=== PATIENT | female | born 1990 | race Caucasian/White ===

== ENCOUNTER 2018-04-19 16:35 | Emergency (ER) | payer MEDICAID ==
[~2018-04-19] VITALS: Ht 154.9 cm; Wt 68.2 kg
[~2018-04-19 16:35] MED LIST: DITROPAN 5MG TAB5 MG PO; FLEXERIL 1010 MG/TAB PO; KEPPRA1000 MG PO; MACRODANTIN100 PO; NEURONTIN400 MG/CAP PO; NEURONTIN600 MG/TAB PO; NORCO 325 MG-51 TAB PO; PERCOCET 325 MG1 TAB PO; PHENERGAN 25 TA25 MG PO; PROZAC 10MG10 MG PO; XARELTO20 MG PO
[2018-04-19 16:45] VITALS: BP 136/83; TEMP 98.6
[2018-04-19] MEDS ORDERED: ATIVAN 1MG T1 MG/TAB PO (17:08)
[2018-04-19] MEDS ORDERED: ALBUTEROL0.83 MG/ML IH (17:08)
[2018-04-19] MEDS ORDERED: PROAIR HFA0.09 MG/AC IH (17:08)
[2018-04-19 18:36] VITALS: PULSE 103
== END 2018-04-19 18:36 | disposition home or self-care (01) ==
LOC: COL.ER 16:35
DX: J02.9 Acute pharyngitis, unspecified (principal); F17.210 Nicotine dependence, cigarettes, uncomplicated; Z98.890 Other specified postprocedural states; Z88.0 Allergy status to penicillin; F32.9 Major depressive disorder, single episode, unspecified; Z86.711 Personal history of pulmonary embolism; Z88.1 Allergy status to other antibiotic agents

== ENCOUNTER 2018-04-24 10:46 | Emergency (ER) | payer MEDICAID ==
[~2018-04-24] VITALS: Ht 154.9 cm; Wt 71.8 kg
[~2018-04-24 10:46] MED LIST changes: +ALBUTEROL0.83 MG/ML IH; +ATIVAN 1MG T1 MG/TAB PO; +PROAIR HFA0.09 MG/AC IH
[2018-04-24 10:54] VITALS: BP 127/85; TEMP 98.9
[2018-04-24] MEDS ORDERED: CLEOCIN HCL300 MG PO (12:06)
[2018-04-24 12:34] VITALS: PULSE 101
== END 2018-04-24 12:43 | disposition home or self-care (01) ==
LOC: COL.ER 10:46
DX: J02.0 Streptococcal pharyngitis (principal); F32.9 Major depressive disorder, single episode, unspecified; F17.210 Nicotine dependence, cigarettes, uncomplicated; Z88.0 Allergy status to penicillin; Z88.1 Allergy status to other antibiotic agents

== ENCOUNTER → 2018-06-30 | Outpatient (CLI) | payer MEDICAID ==
[~2018-06-30] MED LIST changes: +CLEOCIN HCL300 MG PO
== END ==
LOC: COL.RAD 09:54
DX: N92.6 Irregular menstruation, unspecified (principal); Z90.89 Acquired absence of other organs
CPT/HCPCS: Q9967

== ENCOUNTER 2018-08-05 13:06 | Emergency (ER) | payer MEDICAID ==
[~2018-08-05] VITALS: Ht 154.9 cm; Wt 72.7 kg
[2018-08-05 13:08] VITALS: TEMP 99.3
[2018-08-05 13:44] LABS: BASO # 0.1 (0.0-0.2); BASO % 1.3 % (0.0-2.0); EOS # 0.5 (0.0-0.7); EOS % 6.3 % (0-4.0); GRAN # 3.8 (1.4-6.5); GRAN % 49.8 % (42.2-75.2); HEMOGLOBIN 11.1 g/dl (12.5-16.0); LYMPH # 2.7 (1.2-3.4); LYMPH % 35.5 % (20.0-51.0); MEAN CELL VOLUME 83 fl (80.0-100.0); MEAN CORPUSCULAR HEMOGLOBIN 27 pg (27.0-31.0); MEAN CORPUSCULAR HGB CONC 33 g/dl (33.0-37.0); MEAN PLATELET VOLUME 8.5 fl (7.4-10.4); MONO # 0.5 (0.1-0.6); MONO % 5.9 % (1.7-9.3); PLATELET COUNT 484 K/mm3 (130-400); RED BLOOD COUNT 4.12 M/mm3 (4.10-5.30); REDCELL DISTRIBUTION WIDTH-CV 14.4 % (11.5-14.5)
[2018-08-05 13:45] LABS: HEMATOCRIT 34.2 % (37.0-47.0)
[2018-08-05 13:49] LABS: INR 1.5 (0.8-3.0); PROTHROMBIN TIME 17.3 SECONDS (9.7-12.8)
[2018-08-05 13:57] LABS: ALBUMIN 4.1 gm/dL (3.5-5.0); BILIRUBIN,TOTAL 0.3 mg/dL (0.0-1.0); CALCIUM 9.5 mg/dL (8.4-10.2); CREATININE, serum 0.59 (0.52-1.25); POTASSIUM 4.2 mmol/L (3.4-5.0); TOTAL PROTEIN 7.9 gm/dL (6.4-8.2)
[2018-08-05 13:57] LABS: COLLECTION METHOD CLEAN CATCH
[2018-08-05 14:14] LABS: PH 6 (5-8); URINE APPEARANCE Cloudy; URINE BACTERIA None Seen /hpf; URINE BILIRUBIN Negative (NEGATIVE); URINE BLOOD 3+ (NEGATIVE); URINE COLOR Yellow; URINE GLUCOSE Negative (NEGATIVE); URINE KETONE Negative (NEGATIVE); URINE LEUKOCYTE ESTERASE 3+ (NEGATIVE); URINE NITRATE Negative (NEGATIVE); URINE PROTEIN(semi-quant) Negative (NEGATIVE); URINE RBC 20-50 /hpf; URINE UROBILINOGEN Negative (NEGATIVE)
[2018-08-05 14:26] VITALS: BP 100/64; PULSE 93
[2018-08-05] MEDS ORDERED: XARELTO20 MG PO (14:27)
== END 2018-08-05 15:17 | disposition home or self-care (01) ==
LOC: COL.ER 13:06
PROVIDERS: Family Medicine
DX: N99.820 Postprocedural hemorrhage of a genitourinary system organ or structure following a genitourinary system procedure (principal); Z90.710 Acquired absence of both cervix and uterus

== ENCOUNTER 2018-09-07 23:22 | Emergency (ER) | payer MEDICAID ==
[~2018-09-07] VITALS: Ht 154.9 cm; Wt 72.7 kg
[2018-09-07 23:23] VITALS: BP 108/81
[2018-09-07] MEDS ORDERED: EPIPEN 2-PAK1 MG/ML IM (23:30)
[2018-09-08] MEDS ORDERED: EPIPEN 2-PAK1 MG/ML IM (00:44)
[2018-09-08 00:45] VITALS: PULSE 108
== END 2018-09-08 00:50 | disposition home or self-care (01) ==
LOC: COL.ER 23:22
DX: T78.1XXA Other adverse food reactions, not elsewhere classified, initial encounter (principal); F17.210 Nicotine dependence, cigarettes, uncomplicated
CPT/HCPCS: J1200; J2930; J3010; J7030

== ENCOUNTER 2018-10-11 21:09 | Emergency (ER) | payer MEDICAID ==
[~2018-10-11] VITALS: Ht 154.9 cm; Wt 69.1 kg
[~2018-10-11 21:09] MED LIST changes: +EPIPEN 2-PAK1 MG/ML IM
[2018-10-11 21:28] VITALS: BP 121/81; TEMP 97.1
[2018-10-12 01:17] VITALS: PULSE 86
== END 2018-10-12 01:19 | disposition home or self-care (01) ==
LOC: COL.ER 21:09
DX: S63.501A Unspecified sprain of right wrist, initial encounter (principal); T22.111A Burn of first degree of right forearm, initial encounter; F17.290 Nicotine dependence, other tobacco product, uncomplicated; F32.9 Major depressive disorder, single episode, unspecified; F41.9 Anxiety disorder, unspecified; Z88.0 Allergy status to penicillin; Z88.1 Allergy status to other antibiotic agents; W01.0XXA Fall on same level from slipping, tripping and stumbling without subsequent striking against object, initial encounter; X10.2XXA Contact with fats and cooking oils, initial encounter; Y92.009 Unspecified place in unspecified non-institutional (private) residence as the place of occurrence of the external cause

== ENCOUNTER → 2018-10-13 | Outpatient (CLI) | payer MEDICAID | LOC: COL.RAD 11:38 | DX: T23.001A Burn of unspecified degree of right hand, unspecified site, initial encounter (principal) ==

== ENCOUNTER 2018-11-12 12:08 | Emergency (ER) | payer MEDICAID ==
[~2018-11-12] VITALS: Ht 154.9 cm; Wt 72.7 kg
[2018-11-12 12:21] VITALS: BP 115/78
[2018-11-12] MEDS ORDERED: DOXYCYCLINE 10100 MG PO (13:30)
[2018-11-12 13:50] VITALS: PULSE 96; TEMP 98.1
== END 2018-11-12 13:50 | disposition home or self-care (01) ==
LOC: COL.ER 12:08
DX: L03.115 Cellulitis of right lower limb (principal); F32.9 Major depressive disorder, single episode, unspecified; F17.210 Nicotine dependence, cigarettes, uncomplicated; Z90.710 Acquired absence of both cervix and uterus; Z98.890 Other specified postprocedural states; Z86.711 Personal history of pulmonary embolism

== ENCOUNTER → 2019-02-07 | Outpatient (CLI) | payer MEDICAID ==
[~2019-02-07] MED LIST changes: +DOXYCYCLINE 10100 MG PO
[2019-02-07 14:25] LABS: MAGNESIUM 2.1 mg/dL (1.6-2.3)
[2019-02-07 23:44] LABS: FOLATE (FOLIC ACID) 10.3 ng/mL (7.0-31.4)
[2019-02-08 12:44] LABS: LYME DISEASE ANTIBODIES Negative (Negative)
[2019-02-08 23:59] LABS: RPR (VDRL) XXX
[2019-02-09 15:52] LABS: ANA SCREEN with REFLEX Indeterminate (Negative)
== END ==
LOC: COL.LAB 12:51
PROVIDERS: Psychiatry & Neurology Neurology
DX: G62.9 Polyneuropathy, unspecified (principal); E53.1 Pyridoxine deficiency; E61.2 Magnesium deficiency

== ENCOUNTER 2019-02-17 13:43 | Inpatient (IN) | payer MEDICAID ==
[~2019-02-17] VITALS: Ht 154.9 cm; Wt 78.5 kg
[2019-02-17 14:42] LABS: BASO # 0.1 (0.0-0.2); BASO % 0.6 % (0.0-2.0); EOS # 0.1 (0.0-0.7); EOS % 1.3 % (0-4.0); GRAN % 73.7 % (42.2-75.2); HEMOGLOBIN 13.8 g/dl (12.5-16.0); LYMPH # 1.6 (1.2-3.4); LYMPH % 16.8 % (20.0-51.0); MEAN CELL VOLUME 90 fl (80.0-100.0); MEAN CORPUSCULAR HEMOGLOBIN 30 pg (27.0-31.0); MEAN CORPUSCULAR HGB CONC 33 g/dl (33.0-37.0); MEAN PLATELET VOLUME 8.9 fl (7.4-10.4); MONO # 0.7 (0.1-0.6); MONO % 7.4 % (1.7-9.3); PLATELET COUNT 381 K/mm3 (130-400); RED BLOOD COUNT 4.67 M/mm3 (4.10-5.30); REDCELL DISTRIBUTION WIDTH-CV 12.5 % (11.5-14.5)
[2019-02-17 14:55] LABS: ALBUMIN 4.8 gm/dL (3.5-5.0); BILIRUBIN,TOTAL 0.4 mg/dL (0.0-1.0); CREATININE, serum 0.72 (0.52-1.25); PHOSPHOROUS 4.1 mg/dL (2.5-4.5); POTASSIUM 3.7 mmol/L (3.4-5.0); TOTAL PROTEIN 8.8 gm/dL (6.4-8.2)
[2019-02-17 15:13] LABS: C-REACTIVE PROTEIN 0.6 mg/dL (0.0-0.9)
[2019-02-17 15:26] LABS: COLLECTION METHOD CLEAN CATCH
[2019-02-17 15:33] LABS: MUCOUS Present /lpf; PH 5 (5-8); SQUAMOUS EPITHELIAL 0-2 /hpf; URINE APPEARANCE Clear; URINE BACTERIA None Seen /hpf; URINE BILIRUBIN Negative (NEGATIVE); URINE BLOOD 2+ (NEGATIVE); URINE COLOR Yellow; URINE GLUCOSE Negative (NEGATIVE); URINE KETONE Negative (NEGATIVE); URINE LEUKOCYTE ESTERASE Negative (NEGATIVE); URINE NITRATE Negative (NEGATIVE); URINE PROTEIN(semi-quant) Negative (NEGATIVE); URINE RBC 20-50 /hpf; URINE UROBILINOGEN Negative (NEGATIVE); URINE WBC 0-2 /hpf
[2019-02-17 19:00] VITALS: BP 109/68; PULSE 128; TEMP 97.7
[2019-02-17 19:04] VITALS: BP 109/68; PULSE 128; TEMP 97.7
[2019-02-17] MEDS ORDERED: VTAMINC250TA PO (19:23)
[2019-02-17] MEDS ORDERED: IRON TABLETS325 MG PO (19:25)
--- NOTE | 2019-02-17 19:43 | NUR ---
Pt. sitting up in bed at this time. Pt. is A&OX3, assessment complete. IV to lt. AC patent, Fluids infusing per orders. Pt. reports pain at a 7 on pain scale to bilateral thighs. Will give pain meds per orders. Pt. denies further needs, call light within reach.
--- NOTE | 2019-02-17 21:46 | NUR ---
Report received from KELLIE Hernandez. Patient up to commode with assistance from staff. Upon reassessment, patient in bed with eyes closed. Will continue to monitor patient.
[2019-02-17 23:37] VITALS: BP 103/56; PULSE 125; TEMP 98.4
[2019-02-18 03:32] VITALS: BP 117/72; PULSE 115; TEMP 98.2
--- NOTE | 2019-02-18 03:37 | NUR ---
Patient called this nurse and was noted to be sitting on the floor next to her bed with her feet out in front of her. Denies hitting her head or any new pain r/t fall. Patient stated she was trying to get to the bathroom and her legs gave out and she slid down the bed onto the floor. Patient assisted into the bathroom with 2 assist. Fall risk wristband, signage, gown, and socks applied to patient. Education provided on the importance of calling for help. Bed alarm on. No injury noted. Will continue to monitor patient.
[2019-02-18 07:33] VITALS: BP 103/43; PULSE 119; TEMP 98.3
[2019-02-18] MEDS ORDERED: MACROBID 1100 MG/CAP PO (07:40)
[2019-02-18 07:48] LABS: BASO # 0.1 (0.0-0.2); EOS # 0.3 (0.0-0.7); EOS % 4.1 % (0-4.0); GRAN # 3.2 (1.4-6.5); GRAN % 42.9 % (42.2-75.2); LYMPH # 3.3 (1.2-3.4); LYMPH % 45.1 % (20.0-51.0); MEAN CELL VOLUME 93 fl (80.0-100.0); MEAN CORPUSCULAR HGB CONC 33 g/dl (33.0-37.0); MEAN PLATELET VOLUME 9.5 fl (7.4-10.4); MONO # 0.5 (0.1-0.6); MONO % 6.8 % (1.7-9.3); PLATELET COUNT 283 K/mm3 (130-400); RED BLOOD COUNT 3.76 M/mm3 (4.10-5.30); REDCELL DISTRIBUTION WIDTH-CV 12.8 % (11.5-14.5)
[2019-02-18 07:49] LABS: ALBUMIN 3.4 gm/dL (3.5-5.0); BILIRUBIN,TOTAL 0.2 mg/dL (0.0-1.0); CALCIUM 8.1 mg/dL (8.4-10.2); CREATININE, serum 0.67 (0.52-1.25); HEMATOCRIT 34.8 % (37.0-47.0); HEMOGLOBIN 11.3 g/dl (12.5-16.0); MAGNESIUM 1.9 mg/dL (1.6-2.3); MEAN CORPUSCULAR HEMOGLOBIN 30 pg (27.0-31.0); POTASSIUM 3.9 mmol/L (3.4-5.0); TOTAL PROTEIN 6.2 gm/dL (6.4-8.2)
--- NOTE | 2019-02-18 07:53 | NUR ---
Patient resting in bed. victor manuel reviewed & imporance of calling for help discussed with the weakness reported in legs. Ivf per sofie to [place]. We extensivly reviewed med rec & I will review with .
--- NOTE | 2019-02-18 10:45 | NUR ---
Patient lives with her friend/partner (Federico Okeefe #[phone]) in [place], [place] and plans to return home upon recovery. Patient is disabled and uses a walker for mobility assistance as needed. Patient's primary care physician is Dixie Hayes and also receives medical care from Kisha Pan. Patient's pharmacy is [facility] and she does not have advance directives of healthcare completed at this time. No further needs and child protective services social worker will follow-up as needed.
[2019-02-18 11:34] VITALS: BP 108/64; PULSE 122; TEMP 98.2
[2019-02-18 17:28] VITALS: BP 119/67; PULSE 119; TEMP 97.9
--- NOTE | 2019-02-18 19:46 | NUR ---
Patient has had a busy day. ortho, neuro, & nephrology consults completed. Mri completed. Medications per orders to manage pain & anxiety. She has had visitors throughout the day & been on the phone alot. Tolerating diet. 2 assist to bedside commode today for bathroom assistance, still weak on her legs. New Iv to Left hand, ivf per orders.
[2019-02-18 20:06] VITALS: BP 105/85; PULSE 121; TEMP 98.4
[2019-02-19 01:02] VITALS: BP 94/64; PULSE 123; TEMP 98.7
--- NOTE | 2019-02-19 07:00 | NUR ---
Report rcvd from KELLIE Taylor. Pt appears to be on some extra medications, seems "high". Pt had 2 instances of bowel incontinence during sleep. During the night, Wendy HOPKINS and myself found an extra bottle of medications that had not previously been noted. Bottle was full of a mixture of medications including but not limited to Gabapentin, Flexril and Percocet. Pt denied knowledge of having them on her person, however, she kept her purse on her bed at all times and did not want the RN to move it to the closet for safe keeping. RN also found a vape box along with multiple Nicotine infused "juices" for the vape box. Informed pt that this is a No Smoking campus and that we would need to confinscate that as well. Pt was reluctant, and RN and Pt agreed to send it home with the Boyfriend who was here. Now as a precaution, family members visiting cannot take anything into the room and must let the staff know before entering. Bed alarm remains on due to pts weakness in her legs and numbness in her feet. Pt is very emotional about her current health status. Psych consult has been mentioned by the pt as she has a referral to [facility], but has not been contacted regarding an appointment. Pt states she feels as though her medications are not working for depression, mood disorder as well as severe anxiety. Report given to KELLIE Gold. All of this has been discussed at bedside report and pt agrees to bring up all her concerns to the doctor during rounds today.
[2019-02-19 07:09] LABS: BASO % 0.6 % (0.0-2.0); EOS # 0.4 (0.0-0.7); EOS % 6.5 % (0-4.0); GRAN # 3.8 (1.4-6.5); GRAN % 60.9 % (42.2-75.2); HEMOGLOBIN 10.3 g/dl (12.5-16.0); LYMPH # 1.6 (1.2-3.4); LYMPH % 25.3 % (20.0-51.0); MEAN CELL VOLUME 95 fl (80.0-100.0); MEAN CORPUSCULAR HEMOGLOBIN 29 pg (27.0-31.0); MEAN CORPUSCULAR HGB CONC 31 g/dl (33.0-37.0); MEAN PLATELET VOLUME 9.5 fl (7.4-10.4); MONO # 0.4 (0.1-0.6); MONO % 6.2 % (1.7-9.3); PLATELET COUNT 226 K/mm3 (130-400); REDCELL DISTRIBUTION WIDTH-CV 13.1 % (11.5-14.5)
[2019-02-19 07:10] LABS: HEMATOCRIT 33.2 % (37.0-47.0)
[2019-02-19 07:18] VITALS: BP 105/66; PULSE 104; TEMP 98.4
[2019-02-19 07:33] LABS: ALBUMIN 3.2 gm/dL (3.5-5.0); BILIRUBIN,TOTAL 0.2 mg/dL (0.0-1.0); CALCIUM 8.3 mg/dL (8.4-10.2); CREATININE, serum 0.67 (0.52-1.25); POTASSIUM 4.1 mmol/L (3.4-5.0); TOTAL PROTEIN 6.2 gm/dL (6.4-8.2)
--- NOTE | 2019-02-19 07:34 | NUR ---
Report from Cindy HOPKINS.
[2019-02-19 10:04] LABS: TRICYCLIC ANTIDEPRESS URINE POSITIVE
[2019-02-19 10:04] LABS: ACETAMINOPHEN 14 ug/mL (10-30)
[2019-02-19 10:05] LABS: SALICYLATE < 1.0 mg/dL
[2019-02-19 11:21] VITALS: BP 105/67; PULSE 110; TEMP 98.4
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
--- NOTE | 2019-02-19 15:18 | NUR ---
PILLO PHARMACIST RETURNED MEDS FROM PHARMACY. BOYFRIEND TOOK MEDS HOME.
[2019-02-19 15:19] VITALS: BP 120/59; PULSE 110; TEMP 99.1
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
--- NOTE | 2019-02-19 19:39 | NUR ---
Pt pulled IV out, walked in room with blood on floor and patient wiping up blood on hand.
[2019-02-19 20:00] VITALS: BP 117/59; PULSE 108; TEMP 98.4
--- NOTE | 2019-02-19 21:52 | NUR ---
Pt doing ok. Alert and oriented with VSS. Got up to wheelchair to bathroom a few times. Pt did pull IV out earlier so fluids not running. Patient refused to have house and Dixie start an IV previously.
[2019-02-19 23:23] VITALS: BP 119/69; PULSE 113; TEMP 98.5
--- NOTE | 2019-02-20 01:47 | NUR ---
Patient resting in bed. No issues with patient as of now. Call light within reach, will continue to monitor
[2019-02-20 03:31] VITALS: BP 106/66; PULSE 106; TEMP 98.3
[2019-02-20 06:16] LABS: BASO # 0.1 (0.0-0.2); BASO % 0.9 % (0.0-2.0); EOS # 0.8 (0.0-0.7); EOS % 12.9 % (0-4.0); GRAN # 2.5 (1.4-6.5); GRAN % 38.5 % (42.2-75.2); HEMOGLOBIN 11.2 g/dl (12.5-16.0); LYMPH # 2.5 (1.2-3.4); LYMPH % 39.5 % (20.0-51.0); MEAN CELL VOLUME 93 fl (80.0-100.0); MEAN CORPUSCULAR HEMOGLOBIN 29 pg (27.0-31.0); MEAN CORPUSCULAR HGB CONC 32 g/dl (33.0-37.0); MEAN PLATELET VOLUME 9.5 fl (7.4-10.4); MONO # 0.5 (0.1-0.6); MONO % 7.6 % (1.7-9.3); PLATELET COUNT 235 K/mm3 (130-400); RED BLOOD COUNT 3.83 M/mm3 (4.10-5.30); REDCELL DISTRIBUTION WIDTH-CV 12.9 % (11.5-14.5)
[2019-02-20 06:21] LABS: HEMATOCRIT 35.5 % (37.0-47.0)
[2019-02-20 06:32] LABS: ALBUMIN 3.6 gm/dL (3.5-5.0); BILIRUBIN,TOTAL 0.2 mg/dL (0.0-1.0); CALCIUM 8.9 mg/dL (8.4-10.2); CREATININE, serum 0.58 (0.52-1.25); POTASSIUM 4.3 mmol/L (3.4-5.0); TOTAL PROTEIN 6.6 gm/dL (6.4-8.2)
--- NOTE | 2019-02-20 06:45 | NUR ---
awake resting in bed, bedside shift report received from KELLIE Lakhani, assisted up to bathroom, is able to move herself from bed to WC and then WC to commode with standby assist
[2019-02-20 07:50] VITALS: BP 104/61; PULSE 112; TEMP 98.1
--- NOTE | 2019-02-20 07:50 | NUR ---
resting in bed, full assessment completed, see interventions for further info
--- NOTE | 2019-02-20 09:06 | NUR ---
sitting up in bed eating breakfast, denies needs
--- NOTE | 2019-02-20 09:50 | NUR ---
Dr Austin and care team in to see erin
--- NOTE | 2019-02-20 10:05 | NUR ---
Initial visit; Patient thanked Derrickman Helper for stopping and for keeping her in Derrickman Helper's prayers.
--- NOTE | 2019-02-20 10:30 | NUR ---
is tearful and up set after Dr and care team in and requesting lorazepam, provided 1mg as ordered, KERVIN Vale in and spoke with her about a lumbar puncture and she is in agreement with this after Akanksha explained the need, c/o pain and explained it is tooearly for a pain pill and was medicated with tlexeril 10mg, assisted up to WC and into bathroom, then back to WC and to radiology
--- NOTE | 2019-02-20 11:15 | NUR ---
returned from radiology per stretcher and assisted over and into bed, informed her she would need to lie flat for an hour and verbalizes understanding, assisted onto bed qiu
--- NOTE | 2019-02-20 11:45 | NUR ---
had small amount liquid stool and care provided, denies needs
[2019-02-20 12:02] LABS: CSF APPEARANCE HAZY; CSF COLOR COLORLESS; CSF RBC 1825 /mm3 (0-0)
[2019-02-20 12:12] LABS: CSF MONONUCLEAR 55 % (70-100); CSF POLYMORPHONUCLEAR 45 % (0-6)
[2019-02-20 12:35] LABS: TOTAL PROTEIN,CSF 21 mg/dL (15-45)
[2019-02-20] MEDS ORDERED: ZANAFLEX 4MG TAB4 MG PO (12:56)
--- NOTE | 2019-02-20 13:00 | NUR ---
c/o pain and medicated with roxicodone 5mg
--- NOTE | 2019-02-20 13:00 | NUR ---
cheerful and lying in bed, c/o pain and medicated with roxicodone 5mg po for c/os pain 11/25
[2019-02-20 13:12] VITALS: BP 99/61; PULSE 128; TEMP 98.8
--- NOTE | 2019-02-20 15:00 | NUR ---
awake in bed and looking in bed, asking about when her last pain pill was and informed it was at 1300, verbalizes understanding
[2019-02-20 16:03] VITALS: BP 106/81; PULSE 116; TEMP 98.6
--- NOTE | 2019-02-20 16:19 | NUR ---
requesting lorazepam, informed her it was too early and she was acting confused about that, told her it was only every 8 hours, then she asked about having it before the Dr made rounds, told her they would not be making rounds again tonana cristina and was then excited and was ok with not having it
--- NOTE | 2019-02-20 16:45 | NUR ---
family in to visit, cheerful and coopertive
--- NOTE | 2019-02-20 18:44 | NUR ---
bedside shift report given to KELLIE Mao
[2019-02-20 20:40] VITALS: BP 107/77; PULSE 116; TEMP 98.5
[2019-02-20 23:08] VITALS: BP 115/65; PULSE 117; TEMP 98.6
[2019-02-21 04:29] VITALS: BP 96/78; PULSE 99; TEMP 98.5
--- NOTE | 2019-02-21 07:00 | NUR ---
Report received from KELLIE Mao. PT in bed resting, lab in room drawing labs. Denies needs, will continue to montsim.
[2019-02-21 07:33] LABS: BASO % 0.6 % (0.0-2.0); EOS # 0.8 (0.0-0.7); EOS % 11.4 % (0-4.0); GRAN # 3.1 (1.4-6.5); GRAN % 43.4 % (42.2-75.2); LYMPH # 2.6 (1.2-3.4); MEAN CELL VOLUME 91 fl (80.0-100.0); MEAN CORPUSCULAR HEMOGLOBIN 29 pg (27.0-31.0); MEAN CORPUSCULAR HGB CONC 32 g/dl (33.0-37.0); MEAN PLATELET VOLUME 9.1 fl (7.4-10.4); MONO # 0.6 (0.1-0.6); MONO % 7.9 % (1.7-9.3); PLATELET COUNT 248 K/mm3 (130-400); RED BLOOD COUNT 3.74 M/mm3 (4.10-5.30); REDCELL DISTRIBUTION WIDTH-CV 13.1 % (11.5-14.5)
[2019-02-21 07:42] LABS: HEMATOCRIT 34.2 % (37.0-47.0)
[2019-02-21 07:59] LABS: CALCIUM 9.1 mg/dL (8.4-10.2); CREATININE, serum 0.58 (0.52-1.25); POTASSIUM 4.2 mmol/L (3.4-5.0)
[2019-02-21 08:21] VITALS: BP 107/71; PULSE 113; TEMP 98.9
--- NOTE | 2019-02-21 08:42 | NUR ---
Assessment charted. Pt c/o pain at 10/10 to BLE from knee to hip. From knee to toes it is numb. Pt states she is able to feel some sensations but "feels like when you are at the dentist and you get novacaine". PRN ativan given in anticipation of rounding. Wheelchair at bedside. Pt resting in bed. Will continue to [facility].
[2019-02-21 08:56] LABS: ALBUMIN 3.5 gm/dL (3.5-5.0); BILIRUBIN,TOTAL 0.2 mg/dL (0.0-1.0); TOTAL PROTEIN 6.5 gm/dL (6.4-8.2)
[2019-02-21 11:25] VITALS: BP 113/70; PULSE 119; TEMP 98.7
[2019-02-21] MEDS ORDERED: LAMICTAL 25MG T25 MG PO (13:25)
--- NOTE | 2019-02-21 15:50 | NUR ---
Discharge teaching completed at this time. Pt received dishcarge packet, reviewed packet, answered all questions, reviewed f/u appointments. Pt left wtih all belongings, escorted out via w/c, boyfriend assisted to truck, boyfriend to drive to get DME at [facility] Criteria met.
--- NOTE | 2019-02-21 16:40 | NUR ---
DCF Worker met with the patient in her room. ISABEL then followed up with the patient to review discharge plan and to discuss PT's recommendation of a wheelchair and outpatient PT. The patient was in agreeance to both and preferred [facility] for the outpatient PT. ISABEL contacted Vijaya at [facility] and secured the patient an appointment for outpatient PT on 03/02 at 0930. ISABEL informed the community nurse of the appointment and the Akanksha WEAVER, for a script. ISABEL then presented and explained the Patient Choice Form for DME. The patient chose [facility]. ISABEL contacted and faxed the patient's wheelchair order to Chanda at [facility]. The patient and her boyfriend plan to go pickle solution maker the wheelchair. ISABEL informed Chanda at [facility] of this. The patient is to discharge back home today, 02/21. No additional needs at this time.
[2019-02-22 13:36] LABS: HSV 2 DNA PCR QUAL Not Detected (())
[2019-02-22 13:52] LABS: ALBUMUN SERUM 3400 mg/dL (()); IGG,SERUM 942 mg/dL (()); IGG/ALBUMIN SERUM 0.28 (<=0.40)
[2019-02-22 14:27] LABS: ALBUMIN CSF 8.3 mg/dL (<=27.0); CSF IGG/ALBUMIN 0.11 (<=0.21); CSF,IGG 0.9 mg/dL (<=8.1); CSF-IGG INDEX 0.39 (<=0.85)
== END 2019-02-21 15:50 | disposition home or self-care (01) | DRG 558 ==
LOC: COL.ER 13:43 → MEDICAL 17:13 → EDBEDREQ 17:35 → COL.ER 18:10 → MEDICAL 02-21 15:50
PROVIDERS: Emergency Medicine; Physician Assistant; Psychiatry & Neurology Neurology; ADMIT Internal Medicine
PROC: 009U3ZX Drainage of Spinal Canal, Percutaneous Approach, Diagnostic (ICD-10-PCS; principal; 2019-02-20)
DX: M62.82 Rhabdomyolysis (principal); C56.9 Malignant neoplasm of unspecified ovary; D68.51 Activated protein C resistance; F33.9 Major depressive disorder, recurrent, unspecified; F17.290 Nicotine dependence, other tobacco product, uncomplicated; G40.909 Epilepsy, unspecified, not intractable, without status epilepticus; R53.81 Other malaise; M19.042 Primary osteoarthritis, left hand; M19.041 Primary osteoarthritis, right hand; Z79.891 Long term (current) use of opiate analgesic; Z90.710 Acquired absence of both cervix and uterus; Z87.440 Personal history of urinary (tract) infections; Z88.0 Allergy status to penicillin; Z87.891 Personal history of nicotine dependence
CPT/HCPCS: 99222-AI; 99231-AI; 99232-AI; 99233-AI; J0780; J1170; J1644; J1885; J2405; J7030; J7120

== ENCOUNTER 2019-05-01 08:15 | Outpatient (RCR) | payer MEDICAID ==
[~2019-05-01 08:15] MED LIST changes: +IRON TABLETS325 MG PO; +LAMICTAL 25MG T25 MG PO; +MACROBID 1100 MG/CAP PO; +VTAMINC250TA PO; +ZANAFLEX 4MG TAB4 MG PO
== END 2019-05-01 17:06 | disposition home or self-care (01) ==
LOC: WSC 08:15
DX: M62.82 Rhabdomyolysis (principal)

== ENCOUNTER → 2019-10-02 | Outpatient (CLI) | payer MEDICAID | LOC: COL.RAD 12:56 | DX: M25.571 Pain in right ankle and joints of right foot (principal); M25.561 Pain in right knee ==

== ENCOUNTER → 2019-12-28 | Emergency (ER) | payer MEDICAID ==
[~2019-12-28] VITALS: Ht 154.9 cm; Wt 80.9 kg
[~2019-12-28] MED LIST changes: +SEPTRA DS 8001 TAB PO
[2019-12-28 19:19] VITALS: TEMP 97.7
[2019-12-28 20:27] LABS: COLLECTION METHOD CLEAN CATCH
[2019-12-28 20:34] LABS: PH 5 (5-8); SQUAMOUS EPITHELIAL 0-2 /hpf; URINE APPEARANCE Clear; URINE BACTERIA Rare /hpf; URINE BILIRUBIN Negative (NEGATIVE); URINE BLOOD 2+ (NEGATIVE); URINE COLOR Yellow; URINE GLUCOSE Negative (NEGATIVE); URINE KETONE Negative (NEGATIVE); URINE LEUKOCYTE ESTERASE Trace (NEGATIVE); URINE NITRATE Negative (NEGATIVE); URINE PROTEIN(semi-quant) Negative (NEGATIVE); URINE RBC >50 /hpf; URINE UROBILINOGEN Negative (NEGATIVE)
[2019-12-28 21:29] VITALS: BP 144/80; PULSE 80
== END ==
LOC: COL.ER 19:01
PROVIDERS: Physician Assistant
DX: B34.9 Viral infection, unspecified (principal); N30.91 Cystitis, unspecified with hematuria; J45.909 Unspecified asthma, uncomplicated; F17.290 Nicotine dependence, other tobacco product, uncomplicated; Z20.828 Contact with and (suspected) exposure to other viral communicable diseases; Z79.01 Long term (current) use of anticoagulants; Z86.718 Personal history of other venous thrombosis and embolism; Z86.711 Personal history of pulmonary embolism; Z90.49 Acquired absence of other specified parts of digestive tract; Z90.710 Acquired absence of both cervix and uterus; Z85.43 Personal history of malignant neoplasm of ovary; Z88.0 Allergy status to penicillin; Z88.1 Allergy status to other antibiotic agents

== ENCOUNTER 2020-03-03 05:16 | Day surgery (SDC) | payer MEDICAID ==
[~2020-03-03] VITALS: Ht 154.9 cm; Wt 80.4 kg
[2020-03-03] MEDS ORDERED: ZANAFLEX2 MG PO (06:05)
[2020-03-03] MEDS ORDERED: IMITREX50 MG PO (06:05)
[2020-03-03] MEDS ORDERED: PRENATAL TABLET PO (06:06)
[2020-03-03] MEDS ORDERED: MAG-OX 400400 MG/TAB PO (06:06)
[2020-03-03] MEDS ORDERED: B COMPLEX & B121 TAB PO (06:06)
[2020-03-03] MEDS ORDERED: MACRODANTIN100 PO (06:06)
[2020-03-03 06:09] VITALS: BP 109/66; PULSE 105; TEMP 97.6
[2020-03-03 07:43] VITALS: BP 108/64; PULSE 101; TEMP 97.3
--- NOTE | 2020-03-03 07:43 | NUR ---
Patient arrives back to [facility] drowsy, patient monitor applied, vitals stable. Patient reports slight discomfort in right arm. Right arm has dressing in place with OUMOU wrap on top, no drainage noted. Patient given crackers and sprite. Patient resting comfortably on cart.
[2020-03-03 08:00] VITALS: BP 122/98; PULSE 91
--- NOTE | 2020-03-03 08:00 | NUR ---
Patient more awake and eating/drinking well, denies nausea. Patient's friend brought to bedside.
[2020-03-03 08:30] VITALS: BP 116/57; PULSE 75
--- NOTE | 2020-03-03 08:35 | NUR ---
Patient reports she is ready to go home, but would like to get one pain tablet medication on board prior to dicharge. Dressing clean/dry/intact.
--- NOTE | 2020-03-03 08:45 | NUR ---
Dismissal instructions gone over with patient. She voices understanding and all questions answered.
--- NOTE | 2020-03-03 08:55 | NUR ---
Patient discharged to private vehicle at patient enterance via wheelchair without any complications. Patient leaves thanking staff for services.
== END 2020-03-03 08:55 | disposition home or self-care (01) ==
LOC: SDCO 05:16
DX: G56.01 Carpal tunnel syndrome, right upper limb (principal); J45.909 Unspecified asthma, uncomplicated; G89.29 Other chronic pain; M54.5 Low back pain; F32.9 Major depressive disorder, single episode, unspecified; F17.210 Nicotine dependence, cigarettes, uncomplicated; F41.9 Anxiety disorder, unspecified; Z20.828 Contact with and (suspected) exposure to other viral communicable diseases; F43.10 Post-traumatic stress disorder, unspecified; Z86.711 Personal history of pulmonary embolism; Z79.01 Long term (current) use of anticoagulants; Z79.899 Other long term (current) drug therapy; Z88.7 Allergy status to serum and vaccine; Z88.0 Allergy status to penicillin; Z88.1 Allergy status to other antibiotic agents; Z91.040 Latex allergy status; D68.2 Hereditary deficiency of other clotting factors; Z85.9 Personal history of malignant neoplasm, unspecified; Z92.21 Personal history of antineoplastic chemotherapy
CPT/HCPCS: J0670; J0690; J1885; J2405; J2704; J7120

== ENCOUNTER 2020-06-13 19:45 | Emergency (ER) | payer MEDICAID ==
[~2020-06-13] VITALS: Ht 170.2 cm; Wt 61.4 kg
[~2020-06-13 19:45] MED LIST changes: +B COMPLEX & B121 TAB PO; +IMITREX50 MG PO; +MAG-OX 400400 MG/TAB PO; +PRENATAL TABLET PO; +ZANAFLEX2 MG PO
[2020-06-13 20:01] VITALS: BP 124/70; TEMP 98
[2020-06-13 23:18] VITALS: PULSE 76
== END 2020-06-13 23:18 | disposition home or self-care (01) ==
LOC: COL.ER 19:45
DX: M25.522 Pain in left elbow (principal); F17.290 Nicotine dependence, other tobacco product, uncomplicated; Z85.43 Personal history of malignant neoplasm of ovary; Z90.49 Acquired absence of other specified parts of digestive tract; Z90.710 Acquired absence of both cervix and uterus; Z88.0 Allergy status to penicillin; Z88.1 Allergy status to other antibiotic agents; Z79.01 Long term (current) use of anticoagulants

== ENCOUNTER 2020-06-14 20:31 | Emergency (ER) | payer MEDICAID ==
[~2020-06-14] VITALS: Ht 167.6 cm; Wt 77.3 kg
[2020-06-14 20:38] VITALS: BP 110/75; TEMP 97.9
[2020-06-15 07:31] VITALS: PULSE 104
== END 2020-06-15 07:20 | disposition home or self-care (01) ==
LOC: COL.ER 20:31
DX: M25.522 Pain in left elbow (principal); Z48.01 Encounter for change or removal of surgical wound dressing; Z88.0 Allergy status to penicillin; Z88.1 Allergy status to other antibiotic agents; Z79.01 Long term (current) use of anticoagulants

== ENCOUNTER 2020-06-30 11:09 | Emergency (ER) | payer MEDICAID ==
[~2020-06-30] VITALS: Ht 154.9 cm; Wt 77.3 kg
[2020-06-30 11:12] VITALS: TEMP 97.8
[2020-06-30 11:48] LABS: COLLECTION METHOD CLEAN CATCH
[2020-06-30 11:53] LABS: MUCOUS Present /lpf; PH 6 (5-8); URINE APPEARANCE Hazy; URINE BACTERIA Rare /hpf; URINE BILIRUBIN Negative (NEGATIVE); URINE BLOOD Negative (NEGATIVE); URINE COLOR Yellow; URINE GLUCOSE Negative (NEGATIVE); URINE KETONE Negative (NEGATIVE); URINE LEUKOCYTE ESTERASE Trace (NEGATIVE); URINE NITRATE Negative (NEGATIVE); URINE PROTEIN(semi-quant) Negative (NEGATIVE); URINE RBC 0-2 /hpf; URINE UROBILINOGEN Negative (NEGATIVE)
[2020-06-30 12:24] VITALS: BP 148/89; PULSE 85
== END 2020-06-30 12:25 | disposition home or self-care (01) ==
LOC: COL.ER 11:09
PROVIDERS: Emergency Medicine
DX: M54.5 Low back pain (principal); F17.290 Nicotine dependence, other tobacco product, uncomplicated; Z90.710 Acquired absence of both cervix and uterus; Z90.49 Acquired absence of other specified parts of digestive tract; Z88.0 Allergy status to penicillin; Z88.1 Allergy status to other antibiotic agents; Z79.01 Long term (current) use of anticoagulants

== ENCOUNTER 2020-07-16 17:08 | Emergency (ER) | payer MEDICAID ==
[~2020-07-16] VITALS: Ht 154.9 cm; Wt 72.7 kg
[2020-07-16 17:20] VITALS: BP 133/77; TEMP 98
[2020-07-16 18:06] LABS: BASO # 0.1 (0.0-0.2); BASO % 1.5 % (0.0-2.0); EOS # 0.6 (0.0-0.7); EOS % 7.6 % (0-4.0); GRAN # 3.8 (1.4-6.5); GRAN % 46.3 % (42.2-75.2); HEMATOCRIT 38.5 % (37.0-47.0); HEMOGLOBIN 12.9 g/dl (12.5-16.0); LYMPH # 3.1 (1.2-3.4); LYMPH % 38.3 % (20.0-51.0); MEAN CELL VOLUME 86 fl (80.0-100.0); MEAN CORPUSCULAR HEMOGLOBIN 29 pg (27.0-31.0); MEAN CORPUSCULAR HGB CONC 34 g/dl (33.0-37.0); MONO # 0.5 (0.1-0.6); MONO % 6.1 % (1.7-9.3); PLATELET COUNT 472 K/mm3 (130-400); RED BLOOD COUNT 4.47 M/mm3 (4.10-5.30); REDCELL DISTRIBUTION WIDTH-CV 12.3 % (11.5-14.5)
[2020-07-16 19:07] LABS: INR 1.2 (0.8-3.0); PROTHROMBIN TIME 12.9 SECONDS (9.7-12.8)
[2020-07-16 19:11] LABS: ALBUMIN 4.4 gm/dL (3.5-5.0); BILIRUBIN,TOTAL 0.1 mg/dL (0.0-1.0); CALCIUM 9.4 mg/dL (8.4-10.2); CREATININE, serum 0.64 (0.52-1.25); POTASSIUM 4.3 mmol/L (3.4-5.0); TOTAL PROTEIN 8.3 gm/dL (6.4-8.2)
[2020-07-16 19:32] VITALS: PULSE 86
== END 2020-07-16 19:36 | disposition home or self-care (01) ==
LOC: COL.ER 17:08
PROVIDERS: Family Medicine
DX: M54.5 Low back pain (principal); F17.290 Nicotine dependence, other tobacco product, uncomplicated; Z86.711 Personal history of pulmonary embolism; Z88.0 Allergy status to penicillin; Z88.1 Allergy status to other antibiotic agents; Z79.01 Long term (current) use of anticoagulants
CPT/HCPCS: J1885; Q9967

== ENCOUNTER 2020-08-21 12:36 | Emergency (ER) | payer MEDICAID ==
[~2020-08-21] VITALS: Ht 154.9 cm; Wt 77.3 kg
[2020-08-21 12:45] VITALS: TEMP 98.4
[2020-08-21] MEDS ORDERED: MEDROL 4MG DOSPA4 MG PO (12:56)
[2020-08-21 13:06] VITALS: BP 121/85; PULSE 103
== END 2020-08-21 13:06 | disposition home or self-care (01) ==
LOC: COL.ER 12:36
DX: L23.9 Allergic contact dermatitis, unspecified cause (principal); M54.5 Low back pain; R00.0 Tachycardia, unspecified; R56.9 Unspecified convulsions; F32.9 Major depressive disorder, single episode, unspecified; J45.909 Unspecified asthma, uncomplicated; F17.290 Nicotine dependence, other tobacco product, uncomplicated; Z85.43 Personal history of malignant neoplasm of ovary; Z86.711 Personal history of pulmonary embolism; Z91.040 Latex allergy status; Z88.0 Allergy status to penicillin; Z88.1 Allergy status to other antibiotic agents; Z88.7 Allergy status to serum and vaccine; Z79.51 Long term (current) use of inhaled steroids; Z79.01 Long term (current) use of anticoagulants; Z79.899 Other long term (current) drug therapy

== ENCOUNTER 2020-09-19 10:32 | Emergency (ER) | payer MEDICAID ==
[~2020-09-19] VITALS: Ht 154.9 cm; Wt 81.4 kg
[~2020-09-19 10:32] MED LIST changes: +MEDROL 4MG DOSPA4 MG PO
[2020-09-19 10:33] VITALS: TEMP 98.5
[2020-09-19 11:30] LABS: BASO # 0.1 (0.0-0.2); BASO % 1.3 % (0.0-2.0); EOS # 0.3 (0.0-0.7); GRAN # 4.9 (1.4-6.5); GRAN % 53.6 % (42.2-75.2); HEMATOCRIT 40.5 % (37.0-47.0); HEMOGLOBIN 13.5 g/dl (12.5-16.0); LYMPH # 3.2 (1.2-3.4); LYMPH % 34.8 % (20.0-51.0); MEAN CELL VOLUME 86 fl (80.0-100.0); MEAN CORPUSCULAR HEMOGLOBIN 29 pg (27.0-31.0); MEAN CORPUSCULAR HGB CONC 33 g/dl (33.0-37.0); MEAN PLATELET VOLUME 8.9 fl (7.4-10.4); MONO # 0.7 (0.1-0.6); MONO % 7.2 % (1.7-9.3); PLATELET COUNT 466 K/mm3 (130-400); RED BLOOD COUNT 4.71 M/mm3 (4.10-5.30); REDCELL DISTRIBUTION WIDTH-CV 13.1 % (11.5-14.5)
[2020-09-19 11:34] LABS: COLLECTION METHOD CLEAN CATCH
[2020-09-19 11:38] LABS: INR 1.1 (0.8-3.0); PROTHROMBIN TIME 12.5 SECONDS (9.7-12.8)
[2020-09-19 11:39] LABS: MUCOUS Present /lpf; PH 5 (5-8); SQUAMOUS EPITHELIAL 0-2 /hpf; URINE APPEARANCE Clear; URINE BACTERIA None Seen /hpf; URINE BILIRUBIN Negative (NEGATIVE); URINE BLOOD Negative (NEGATIVE); URINE COLOR Yellow; URINE GLUCOSE Negative (NEGATIVE); URINE KETONE Negative (NEGATIVE); URINE LEUKOCYTE ESTERASE Negative (NEGATIVE); URINE NITRATE Negative (NEGATIVE); URINE PROTEIN(semi-quant) Negative (NEGATIVE); URINE RBC 0-2 /hpf; URINE UROBILINOGEN Negative (NEGATIVE)
[2020-09-19 11:47] LABS: ALBUMIN 4.7 gm/dL (3.5-5.0); BILIRUBIN,TOTAL 0.5 mg/dL (0.0-1.0); CALCIUM 9.9 mg/dL (8.4-10.2); CREATININE, serum 0.72 (0.52-1.25); TOTAL PROTEIN 8.3 gm/dL (6.4-8.2)
[2020-09-19 13:20] VITALS: BP 93/56; PULSE 107
== END 2020-09-19 13:20 | disposition home or self-care (01) ==
LOC: COL.ER 10:32
PROVIDERS: Physician Assistant
DX: G40.909 Epilepsy, unspecified, not intractable, without status epilepticus (principal); D68.51 Activated protein C resistance; G43.909 Migraine, unspecified, not intractable, without status migrainosus; F17.290 Nicotine dependence, other tobacco product, uncomplicated; Z79.01 Long term (current) use of anticoagulants
CPT/HCPCS: J1953; J2765; J7030

== ENCOUNTER 2020-10-31 21:21 | Emergency (ER) | payer MEDICAID ==
[~2020-10-31] VITALS: Ht 154.9 cm; Wt 90.0 kg
[2020-10-31 21:27] VITALS: TEMP 97.2
[2020-10-31] MEDS ORDERED: BACTRIM DS 8001 TAB PO (21:42)
[2020-10-31 21:45] VITALS: BP 130/80; PULSE 80
== END 2020-10-31 21:51 | disposition home or self-care (01) ==
LOC: COL.ER 21:21
DX: L24.9 Irritant contact dermatitis, unspecified cause (principal); L08.9 Local infection of the skin and subcutaneous tissue, unspecified; J45.909 Unspecified asthma, uncomplicated; F32.9 Major depressive disorder, single episode, unspecified; R56.9 Unspecified convulsions; Z79.899 Other long term (current) drug therapy

== ENCOUNTER → 2020-12-18 | Outpatient (CLI) | payer MEDICAID ==
[~2020-12-18] MED LIST changes: +BACTRIM DS 8001 TAB PO
[2020-12-18 12:36] LABS: HIV 1/2 Antibodies Non-Reactive; HIV-1p24 Antigen Non-Reactive
[2020-12-19 02:25] LABS: HEPATITIS C VIRUS ANTIBODY Negative (Negative)
== END ==
LOC: COL.LAB 11:05
PROVIDERS: Specialist
DX: Z01.89 Encounter for other specified special examinations (principal)

== ENCOUNTER → 2020-12-18 | Outpatient (CLI) | payer MEDICAID | LOC: COL.LAB 11:09 | DX: L50.1 Idiopathic urticaria (principal) ==

== ENCOUNTER 2021-01-27 07:47 | Emergency (ER) | payer MEDICAID ==
[~2021-01-27] VITALS: Ht 154.9 cm; Wt 81.8 kg
[2021-01-27 07:58] VITALS: BP 105/61; TEMP 98.1
[2021-01-27] MEDS ORDERED: CLEOCIN HCL300 MG PO (08:06)
[2021-01-27] MEDS ORDERED: NORCO 325 MG-51 TAB PO (08:06)
[2021-01-27 08:23] VITALS: PULSE 97
== END 2021-01-27 08:23 | disposition home or self-care (01) ==
LOC: COL.ER 07:47
DX: K08.89 Other specified disorders of teeth and supporting structures (principal)

== ENCOUNTER 2021-03-27 10:51 | Emergency (ER) | payer MEDICAID ==
[~2021-03-27] VITALS: Ht 154.9 cm; Wt 77.3 kg
[2021-03-27 11:26] VITALS: BP 143/85; PULSE 98; TEMP 97.8
== END 2021-03-27 14:00 | disposition left against medical advice (07) ==
LOC: COL.ER 10:51
DX: J02.9 Acute pharyngitis, unspecified (principal)

== ENCOUNTER → 2021-04-09 | Outpatient (CLI) | payer MEDICAID | LOC: COL.LAB 14:46 | DX: L50.1 Idiopathic urticaria (principal) ==

== ENCOUNTER 2021-04-13 21:02 | Emergency (ER) | payer MEDICAID ==
[~2021-04-13] VITALS: Ht 154.9 cm; Wt 77.3 kg
[2021-04-13 21:25] VITALS: TEMP 98.1
[2021-04-13 21:40] LABS: COLLECTION METHOD CLEAN CATCH
[2021-04-13 21:57] LABS: MUCOUS Present (NOT PRESENT); PH 5 (5-8); SQUAMOUS EPITHELIAL 0-2 /hpf (0-10); URINE APPEARANCE Hazy (CLEAR/HAZY); URINE BACTERIA None Seen /hpf (NONE SEEN); URINE BILIRUBIN Negative (NEGATIVE); URINE BLOOD Negative (NEGATIVE); URINE COLOR Yellow (YELLOW); URINE GLUCOSE Negative (NEGATIVE); URINE KETONE 1+ (NEGATIVE); URINE LEUKOCYTE ESTERASE 2+ (NEGATIVE); URINE NITRATE Negative (NEGATIVE); URINE PROTEIN(semi-quant) 1+ (NEGATIVE); URINE UROBILINOGEN Negative (NEGATIVE)
[2021-04-13 23:39] LABS: BASO # 0.1 K/mm3 (0.0-0.2); BASO % 0.9 % (0.0-2.0); EOS # 0.2 K/mm3 (0.0-0.7); EOS % 1.8 % (0.0-4.0); GRAN # 4.9 K/mm3 (1.4-6.5); GRAN % 53.7 % (42.2-75.2); HEMATOCRIT 41.9 % (37.0-47.0); LYMPH # 3.3 K/mm3 (1.2-3.4); LYMPH % 36.6 % (20.0-51.0); MEAN CELL VOLUME 87 fl (80.0-100.0); MEAN CORPUSCULAR HEMOGLOBIN 29 pg (27-31); MEAN CORPUSCULAR HGB CONC 33 g/dl (33.0-37.0); MEAN PLATELET VOLUME 8.9 fl (7.4-10.4); MONO # 0.6 K/mm3 (0.1-0.6); MONO % 6.8 % (1.7-9.3); PLATELET COUNT 425 K/mm3 (130-400); REDCELL DISTRIBUTION WIDTH-CV 12.3 % (11.5-14.5)
[2021-04-13 23:56] LABS: ALBUMIN 4.6 gm/dL (3.5-5.0); BILIRUBIN,TOTAL 0.5 mg/dL (0.2-1.2); CALCIUM 9.7 mg/dL (8.4-10.2); CREATININE, serum 0.83 mg/dL (0.57-1.11); POTASSIUM 3.6 mmol/L (3.5-4.5); TOTAL PROTEIN 8.5 gm/dL (6.2-8.1)
[2021-04-14] MEDS ORDERED: MACROBID 1100 MG/CAP PO (01:37)
[2021-04-14 01:50] VITALS: BP 138/99; PULSE 100
== END 2021-04-14 01:50 | disposition home or self-care (01) ==
LOC: COL.ER 21:02
PROVIDERS: Emergency Medicine; Nurse Practitioner Primary Care
DX: N39.0 Urinary tract infection, site not specified (principal); G40.909 Epilepsy, unspecified, not intractable, without status epilepticus; G43.909 Migraine, unspecified, not intractable, without status migrainosus; Z87.442 Personal history of urinary calculi; Z90.710 Acquired absence of both cervix and uterus; Z79.01 Long term (current) use of anticoagulants; Z86.711 Personal history of pulmonary embolism; D68.51 Activated protein C resistance; Z90.49 Acquired absence of other specified parts of digestive tract; Z88.0 Allergy status to penicillin; Z88.1 Allergy status to other antibiotic agents; Z79.899 Other long term (current) drug therapy; Z79.891 Long term (current) use of opiate analgesic
CPT/HCPCS: J1885; J2270; J2405; Q9967

== ENCOUNTER 2021-05-26 00:44 | Emergency (ER) | payer MEDICAID ==
[~2021-05-26] VITALS: Ht 154.9 cm; Wt 81.8 kg
[2021-05-26 00:56] VITALS: TEMP 98.6
[2021-05-26 02:23] VITALS: BP 130/66; PULSE 90
== END 2021-05-26 02:23 | disposition home or self-care (01) ==
LOC: COL.ER 00:44
DX: M25.552 Pain in left hip (principal); Z90.710 Acquired absence of both cervix and uterus

== ENCOUNTER 2021-06-09 08:11 | Emergency (ER) | payer MEDICAID ==
[~2021-06-09] VITALS: Ht 154.9 cm; Wt 81.8 kg
[2021-06-09 08:23] VITALS: TEMP 97.8
[2021-06-09 08:32] LABS: COLLECTION METHOD CLEAN CATCH
[2021-06-09 08:40] LABS: MUCOUS Present (NOT PRESENT); PH 5 (5-8); URINE APPEARANCE Hazy (CLEAR/HAZY); URINE BACTERIA Rare /hpf (NONE SEEN); URINE BILIRUBIN Negative (NEGATIVE); URINE BLOOD Negative (NEGATIVE); URINE COLOR Yellow (YELLOW); URINE GLUCOSE Negative (NEGATIVE); URINE KETONE Negative (NEGATIVE); URINE LEUKOCYTE ESTERASE 1+ (NEGATIVE); URINE NITRATE Negative (NEGATIVE); URINE PROTEIN(semi-quant) Negative (NEGATIVE); URINE UROBILINOGEN Negative (NEGATIVE)
[2021-06-09 08:54] LABS: BASO # 0.1 K/mm3 (0.0-0.2); BASO % 1.6 % (0.0-2.0); EOS # 0.2 K/mm3 (0.0-0.7); EOS % 3.6 % (0.0-4.0); GRAN # 3.3 K/mm3 (1.4-6.5); GRAN % 50.9 % (42.2-75.2); HEMATOCRIT 40.7 % (37.0-47.0); HEMOGLOBIN 13.8 g/dl (12.5-16.0); LYMPH # 2.4 K/mm3 (1.2-3.4); LYMPH % 37.5 % (20.0-51.0); MEAN CELL VOLUME 86 fl (80.0-100.0); MEAN CORPUSCULAR HEMOGLOBIN 29 pg (27-31); MEAN CORPUSCULAR HGB CONC 34 g/dl (33.0-37.0); MEAN PLATELET VOLUME 8.8 fl (7.4-10.4); MONO # 0.4 K/mm3 (0.1-0.6); MONO % 6.2 % (1.7-9.3); PLATELET COUNT 430 K/mm3 (130-400); RED BLOOD COUNT 4.75 M/mm3 (4.10-5.30); REDCELL DISTRIBUTION WIDTH-CV 11.9 % (11.5-14.5)
[2021-06-09 09:12] LABS: ALBUMIN 4.3 gm/dL (3.5-5.0); BILIRUBIN,TOTAL 0.4 mg/dL (0.2-1.2); CALCIUM 9.5 mg/dL (8.4-10.2); CREATININE, serum 0.79 mg/dL (0.57-1.11); POTASSIUM 4.2 mmol/L (3.5-4.5)
[2021-06-09] MEDS ORDERED: PERCOCET 325 MG1 TA2 PO ×2 (10:26)
[2021-06-09] MEDS ORDERED: CIPRO 500MG TA500 MG PO (10:26)
[2021-06-09] MEDS ORDERED: ZOFRAN ODT4 MG PO (10:27)
[2021-06-09 11:46] VITALS: BP 117/77; PULSE 88
== END 2021-06-09 11:51 | disposition home or self-care (01) ==
LOC: COL.ER 08:11
PROVIDERS: Personal Emergency Response Attendant
DX: N12 Tubulo-interstitial nephritis, not specified as acute or chronic (principal); M54.16 Radiculopathy, lumbar region
CPT/HCPCS: J1956; J2270; J2405; J7030

== ENCOUNTER 2021-07-11 13:55 | Emergency (ER) | payer MEDICAID ==
[~2021-07-11] VITALS: Ht 154.9 cm; Wt 77.3 kg
[~2021-07-11 13:55] MED LIST changes: +CIPRO 500MG TA500 MG PO; +PERCOCET 325 MG1 TA2 PO; +ZOFRAN ODT4 MG PO
[2021-07-11 13:56] VITALS: TEMP 98.7
[2021-07-11 14:42] LABS: BASO # 0.1 K/mm3 (0.0-0.2); EOS # 0.2 K/mm3 (0.0-0.7); EOS % 2.8 % (0.0-4.0); GRAN # 3.8 K/mm3 (1.4-6.5); HEMATOCRIT 38.9 % (37.0-47.0); HEMOGLOBIN 13.3 g/dl (12.5-16.0); LYMPH # 3.5 K/mm3 (1.2-3.4); LYMPH % 42.9 % (20.0-51.0); MEAN CELL VOLUME 84 fl (80.0-100.0); MEAN CORPUSCULAR HEMOGLOBIN 29 pg (27-31); MEAN CORPUSCULAR HGB CONC 34 g/dl (33.0-37.0); MEAN PLATELET VOLUME 9.1 fl (7.4-10.4); MONO # 0.6 K/mm3 (0.1-0.6); MONO % 7.1 % (1.7-9.3); PLATELET COUNT 399 K/mm3 (130-400); RED BLOOD COUNT 4.65 M/mm3 (4.10-5.30); REDCELL DISTRIBUTION WIDTH-CV 12.2 % (11.5-14.5)
[2021-07-11 14:49] LABS: ALBUMIN 4.2 gm/dL (3.5-5.0); BILIRUBIN,TOTAL 0.3 mg/dL (0.2-1.2); CALCIUM 9.1 mg/dL (8.4-10.2); CREATININE, serum 0.89 mg/dL (0.57-1.11); POTASSIUM 3.7 mmol/L (3.5-4.5); TOTAL PROTEIN 7.9 gm/dL (6.2-8.1)
[2021-07-11 17:26] VITALS: BP 114/74; PULSE 42
== END 2021-07-11 17:53 | disposition home or self-care (01) ==
LOC: COL.ER 13:55
PROVIDERS: Personal Emergency Response Attendant
DX: R55 Syncope and collapse (principal); E86.0 Dehydration; Z91.040 Latex allergy status
CPT/HCPCS: J7030

== ENCOUNTER 2021-08-11 21:14 | Emergency (ER) | payer MEDICAID ==
[~2021-08-11] VITALS: Ht 154.9 cm; Wt 78.2 kg
[2021-08-11 21:31] VITALS: TEMP 98.2
[2021-08-11 22:28] LABS: BASO # 0.1 K/mm3 (0.0-0.2); BASO % 1.3 % (0.0-2.0); EOS # 0.6 K/mm3 (0.0-0.7); EOS % 10.1 % (0.0-4.0); GRAN # 2.1 K/mm3 (1.4-6.5); GRAN % 33.5 % (42.2-75.2); HEMATOCRIT 39.1 % (37.0-47.0); HEMOGLOBIN 13.3 g/dl (12.5-16.0); LYMPH # 2.9 K/mm3 (1.2-3.4); LYMPH % 47.7 % (20.0-51.0); MEAN CELL VOLUME 84 fl (80.0-100.0); MEAN CORPUSCULAR HEMOGLOBIN 29 pg (27-31); MEAN CORPUSCULAR HGB CONC 34 g/dl (33.0-37.0); MONO # 0.4 K/mm3 (0.1-0.6); MONO % 7.2 % (1.7-9.3); PLATELET COUNT 313 K/mm3 (130-400); RED BLOOD COUNT 4.64 M/mm3 (4.10-5.30); REDCELL DISTRIBUTION WIDTH-CV 12.5 % (11.5-14.5)
[2021-08-11 22:35] LABS: INR 1.9 (0.8-3.0); PROTHROMBIN TIME 21.6 SECONDS (9.7-12.8)
[2021-08-11 22:38] LABS: PARTIAL THROMBOPLASTIN TIME 51.9 SECONDS (26.0-37.0)
[2021-08-11 22:52] LABS: ALBUMIN 3.8 gm/dL (3.5-5.0); BILIRUBIN,TOTAL 0.3 mg/dL (0.2-1.2); CALCIUM 9.1 mg/dL (8.4-10.2); CREATININE, serum 0.81 mg/dL (0.57-1.11); MAGNESIUM 1.9 mg/dL (1.6-2.6); TOTAL PROTEIN 7.4 gm/dL (6.2-8.1)
[2021-08-12] VITALS: BP 124/67; PULSE 85
[2021-09-02] MEDS ORDERED: MEDROL 4MG DOSPA4 MG PO (11:48)
== END 2021-08-12 | disposition home or self-care (01) ==
LOC: COL.ER 21:14
PROVIDERS: Emergency Medicine
DX: S80.12XA Contusion of left lower leg, initial encounter (principal); S80.11XA Contusion of right lower leg, initial encounter; G89.29 Other chronic pain; Z86.711 Personal history of pulmonary embolism; Z79.01 Long term (current) use of anticoagulants; X58.XXXA Exposure to other specified factors, initial encounter

== ENCOUNTER → 2021-09-02 | Emergency (ER) | payer MEDICAID ==
[~2021-09-02] VITALS: Ht 154.9 cm; Wt 77.3 kg
[2021-09-02 11:10] VITALS: BP 115/84; TEMP 98.2
[2021-09-02 11:55] VITALS: PULSE 78
== END ==
LOC: COL.ER 11:04
DX: R21 Rash and other nonspecific skin eruption (principal); Z87.891 Personal history of nicotine dependence; Z91.040 Latex allergy status; Z28.310 Unvaccinated for COVID-19; Z79.899 Other long term (current) drug therapy

== ENCOUNTER 2021-09-16 00:15 | Emergency (ER) | payer MEDICAID ==
[~2021-09-16] VITALS: Ht 154.9 cm; Wt 79.5 kg
[2021-09-16 00:16] VITALS: TEMP 97.8
[2021-09-16 01:00] VITALS: BP 131/74; PULSE 71
== END 2021-09-16 01:00 | disposition home or self-care (01) ==
LOC: COL.ER 00:15
DX: M54.50 Low back pain, unspecified (principal); G89.29 Other chronic pain; Z91.040 Latex allergy status

== ENCOUNTER 2021-11-18 17:53 | Emergency (ER) | payer OTHER, MEDICAID ==
[~2021-11-18] VITALS: Ht 154.9 cm; Wt 75.0 kg
[2021-11-18 18:04] VITALS: TEMP 98.8
[2021-11-18] MEDS ORDERED: FLEXERIL 1010 MG/TAB PO (20:39)
[2021-11-18 20:59] VITALS: BP 132/94; PULSE 96
== END 2021-11-18 21:01 | disposition home or self-care (01) ==
LOC: COL.ER 17:53
DX: S16.1XXA Strain of muscle, fascia and tendon at neck level, initial encounter (principal); S39.012A Strain of muscle, fascia and tendon of lower back, initial encounter; Z87.891 Personal history of nicotine dependence; Z91.040 Latex allergy status; Z28.310 Unvaccinated for COVID-19; V89.2XXA Person injured in unspecified motor-vehicle accident, traffic, initial encounter; Y92.410 Unspecified street and highway as the place of occurrence of the external cause

== ENCOUNTER 2021-11-30 20:24 | Emergency (ER) | payer OTHER, MEDICAID ==
[~2021-11-30] VITALS: Ht 154.9 cm; Wt 77.3 kg
[2021-11-30 20:37] VITALS: TEMP 97.1
[2021-11-30] MEDS ORDERED: ROBAXIN 50500 MG/TAB PO (22:12)
[2021-11-30] MEDS ORDERED: LIDODERM 5% PATC1 EA TP (22:12)
[2021-11-30 22:29] VITALS: BP 96/76; PULSE 85
== END 2021-11-30 22:31 | disposition home or self-care (01) ==
LOC: COL.ER 20:24
DX: M54.50 Low back pain, unspecified (principal); M53.3 Sacrococcygeal disorders, not elsewhere classified; Z91.040 Latex allergy status
CPT/HCPCS: J1885

== ENCOUNTER 2022-02-04 13:50 | Emergency (ER) | payer MEDICAID ==
[~2022-02-04] VITALS: Ht 154.9 cm; Wt 75.0 kg
[~2022-02-04 13:50] MED LIST changes: +LIDODERM 5% PATC1 EA TP; +ROBAXIN 50500 MG/TAB PO
[2022-02-04 18:08] LABS: STREP SCREEN NEGATIVE
[2022-02-04 19:18] VITALS: BP 118/73; PULSE 91; TEMP 98.8
== END 2022-02-04 19:18 | disposition home or self-care (01) ==
LOC: COL.ER 13:50
PROVIDERS: Nurse Practitioner
DX: B34.9 Viral infection, unspecified (principal); D68.2 Hereditary deficiency of other clotting factors; Z91.040 Latex allergy status; Z20.822 Contact with and (suspected) exposure to COVID-19; Z28.310 Unvaccinated for COVID-19; Z79.01 Long term (current) use of anticoagulants

== ENCOUNTER 2022-02-23 15:29 | Emergency (ER) | payer MEDICAID ==
[~2022-02-23] VITALS: Ht 154.9 cm; Wt 80.0 kg
[2022-02-23 15:38] VITALS: TEMP 99
[2022-02-23 17:03] LABS: COLLECTION METHOD CLEAN CATCH
[2022-02-23 17:15] LABS: URINE APPEARANCE Clear (CLEAR/HAZY); URINE BLOOD Negative (NEGATIVE); URINE COLOR Yellow (YELLOW); URINE GLUCOSE Negative (NEGATIVE); URINE KETONE Negative (NEGATIVE); URINE NITRATE Negative (NEGATIVE); URINE PROTEIN(semi-quant) Negative (NEGATIVE); URINE UROBILINOGEN 0.2 E.U/dL (0.2-1.0)
[2022-02-23 17:16] LABS: MUCOUS Present (NOT PRESENT); SQUAMOUS EPITHELIAL 0-2 /hpf (0-10); URINE BACTERIA Rare /hpf (NONE SEEN); URINE RBC 0-2 /hpf (0-2)
[2022-02-23 17:39] LABS: TRICYCLIC ANTIDEPRESS URINE NEGATIVE
[2022-02-23 18:08] VITALS: BP 153/83; PULSE 89
== END 2022-02-23 18:07 | disposition home or self-care (01) ==
LOC: COL.ER 15:29
PROVIDERS: Emergency Medicine
DX: M54.50 Low back pain, unspecified (principal); G89.29 Other chronic pain; F11.90 Opioid use, unspecified, uncomplicated; Z28.310 Unvaccinated for COVID-19; Z91.040 Latex allergy status
CPT/HCPCS: J1790; J1885

== ENCOUNTER 2022-05-17 11:00 | Outpatient (RCR) | payer MEDICAID ==
[2022-05-20] MEDS ORDERED: ZITHROMAX 250M250 MG PO (22:17)
== END 2022-05-18 | disposition home or self-care (01) ==
LOC: WSOT
DX: M25.531 Pain in right wrist (principal)

== ENCOUNTER 2022-06-09 09:15 | Outpatient (RCR) | payer MEDICAID ==
[~2022-06-09 09:15] MED LIST changes: +ZITHROMAX 250M250 MG PO
== END 2022-06-15 | disposition home or self-care (01) ==
LOC: WSOT
DX: M25.531 Pain in right wrist (principal)

== ENCOUNTER 2022-06-17 20:35 | Emergency (ER) | payer MEDICAID ==
[~2022-06-17] VITALS: Ht 154.9 cm; Wt 75.5 kg
[2022-06-17 21:30] LABS: COLLECTION METHOD CLEAN CATCH
[2022-06-17 21:33] LABS: BASO # 0.1 K/mm3 (0.0-0.2); BASO % 1.6 % (0.0-2.0); EOS # 1.2 K/mm3 (0.0-0.7); GRAN # 2.3 K/mm3 (1.4-6.5); GRAN % 27.9 % (42.2-75.2); HEMATOCRIT 39.3 % (37.0-47.0); HEMOGLOBIN 13.3 g/dl (12.5-16.0); LYMPH # 4.2 K/mm3 (1.2-3.4); LYMPH % 49.8 % (20.0-51.0); MEAN CELL VOLUME 84 fl (80.0-100.0); MEAN CORPUSCULAR HEMOGLOBIN 28 pg (27-31); MEAN CORPUSCULAR HGB CONC 34 g/dl (33.0-37.0); MEAN PLATELET VOLUME 9.1 fl (7.4-10.4); MONO # 0.5 K/mm3 (0.1-0.6); MONO % 6.5 % (1.7-9.3); PLATELET COUNT 322 K/mm3 (130-400); RED BLOOD COUNT 4.68 M/mm3 (4.10-5.30); REDCELL DISTRIBUTION WIDTH-CV 12.5 % (11.5-14.5)
[2022-06-17 21:35] LABS: URINE APPEARANCE Clear (CLEAR/HAZY); URINE COLOR Yellow (YELLOW)
[2022-06-17 21:36] LABS: PH 5.5 (5.0-8.5); URINE BLOOD Negative (NEGATIVE); URINE GLUCOSE Negative (NEGATIVE); URINE KETONE Negative (NEGATIVE); URINE NITRATE Negative (NEGATIVE); URINE PROTEIN(semi-quant) Negative (NEGATIVE); URINE UROBILINOGEN 0.2 E.U/dL (0.2-1.0)
[2022-06-17 21:40] LABS: MUCOUS Present (NOT PRESENT); URINE BACTERIA Rare /hpf (NONE SEEN)
[2022-06-17 21:59] LABS: ALBUMIN 4.2 gm/dL (3.5-5.0); BILIRUBIN,TOTAL 0.4 mg/dL (0.2-1.2); CALCIUM 9.9 mg/dL (8.4-10.2); CREATININE, serum 0.81 mg/dL (0.57-1.11); POTASSIUM 3.8 mmol/L (3.5-4.5); TOTAL PROTEIN 8.1 gm/dL (6.2-8.1)
[2022-06-17 22:40] VITALS: BP 143/98; PULSE 88; TEMP 98.7
== END 2022-06-17 22:40 | disposition home or self-care (01) ==
LOC: COL.ER 20:35
PROVIDERS: Personal Emergency Response Attendant
DX: R10.32 Left lower quadrant pain (principal); R07.89 Other chest pain; F17.290 Nicotine dependence, other tobacco product, uncomplicated; Z91.040 Latex allergy status; Z90.49 Acquired absence of other specified parts of digestive tract; Z28.310 Unvaccinated for COVID-19
CPT/HCPCS: J2405; J7030; Q9967

== ENCOUNTER 2022-07-11 13:50 | Emergency (ER) | payer MEDICAID ==
[~2022-07-11] VITALS: Ht 154.9 cm; Wt 77.3 kg
[2022-07-11 16:18] VITALS: BP 142/98; PULSE 94; TEMP 98
== END 2022-07-11 16:20 | disposition home or self-care (01) ==
LOC: COL.ER 13:50
DX: J02.9 Acute pharyngitis, unspecified (principal); G89.18 Other acute postprocedural pain; R11.2 Nausea with vomiting, unspecified; Z28.310 Unvaccinated for COVID-19
CPT/HCPCS: J1790; J1885; J7120

== ENCOUNTER 2022-07-14 11:00 | Outpatient (RCR) | payer MEDICAID | END 2022-07-16 | disposition home or self-care (01) | LOC: WSOT | DX: M25.531 Pain in right wrist (principal) ==

== ENCOUNTER 2022-08-03 19:04 | Emergency (ER) | payer MEDICAID ==
[~2022-08-03] VITALS: Ht 154.9 cm; Wt 72.7 kg
[2022-08-03 19:35] VITALS: BP 122/100; PULSE 105; TEMP 96.7
== END 2022-08-03 19:45 | disposition home or self-care (01) ==
LOC: COL.ER 19:04
DX: S61.512A Laceration without foreign body of left wrist, initial encounter (principal); Z23 Encounter for immunization; Z91.040 Latex allergy status; X99.1XXA Assault by knife, initial encounter; Y07.44 Child, perpetrator of maltreatment and neglect

== ENCOUNTER 2023-01-18 23:22 | Emergency (ER) | payer MEDICAID ==
[~2023-01-18] VITALS: Ht 154.9 cm; Wt 79.5 kg
[~2023-01-18 23:22] MED LIST changes: +CRUTCHES MC
[2023-01-19 02:18] VITALS: BP 115/58; PULSE 97; TEMP 98.2
== END 2023-01-19 02:18 | disposition home or self-care (01) ==
LOC: COL.ER 23:22
DX: S51.821A Laceration with foreign body of right forearm, initial encounter (principal); S61.412A Laceration without foreign body of left hand, initial encounter; S61.211A Laceration without foreign body of left index finger without damage to nail, initial encounter; Z28.310 Unvaccinated for COVID-19; F17.290 Nicotine dependence, other tobacco product, uncomplicated; D68.51 Activated protein C resistance; Z91.040 Latex allergy status; Z79.01 Long term (current) use of anticoagulants; W25.XXXA Contact with sharp glass, initial encounter; Y92.59 Other trade areas as the place of occurrence of the external cause

== ENCOUNTER 2023-05-25 00:54 | Emergency (ER) | payer MEDICAID ==
[~2023-05-25] VITALS: Ht 154.9 cm; Wt 79.1 kg
[2023-05-25 01:02] VITALS: TEMP 97.9
[2023-05-25] MEDS ORDERED: Ibuprofen 400 MG TAB PO ONE (01:30)
[2023-05-25] MEDS ORDERED: tiZANidine 4 MG TAB PO ONE (01:30)
[2023-05-25] MEDS ORDERED: ZANAFLEX 4MG TAB4 MG PO (02:25)
[2023-05-25 02:45] VITALS: BP 107/69; PULSE 104
== END 2023-05-25 02:45 | disposition home or self-care (01) ==
LOC: COL.ER 00:54
DX: M62.838 Other muscle spasm (principal); G89.29 Other chronic pain; Z91.040 Latex allergy status; Z88.6 Allergy status to analgesic agent; Z98.890 Other specified postprocedural states; W19.XXXA Unspecified fall, initial encounter

== ENCOUNTER 2023-12-02 12:49 | Outpatient (CLI) | payer MEDICAID ==
[~2023-12-02] VITALS: Ht 154.9 cm; Wt 76.7 kg
[~2023-12-02 12:49] MED LIST changes: +ALLEGRA 180MG180 MG PO; +ATARAX50 MG PO; +ATIVAN 0.50.5 MG/TAB PO; +CATAPRES 0.1MG0.1 MG PO; +IMITREX100 MG PO; +SINGULAIR 110 MG/TAB PO; +SONATA5 MG PO; +VITAMIN B12 781 TAB PO; +VITAMIN D31000 I1 PO; +VITAMINC1000TA PO; +XOLAIR150 MG/1 M SQ
[2023-12-02 13:01] VITALS: BP 113/76; PULSE 82; TEMP 98.3; TEMP 98.4
[2023-12-02] MEDS ORDERED: Omalizumab 150 MG/1 ML SYRINGE SQ SCH (13:15)
--- NOTE | 2023-12-02 14:32 | NUR ---
Pt reports she is unable to stay the whole 2 hours post.Pt reports no sign or symptom of reaction.Pt discharged via ambulatory.
== END 2023-12-02 14:39 ==
LOC: EUO 12:49
DX: L50.1 Idiopathic urticaria (principal)
CPT/HCPCS: J2357

== ENCOUNTER 2023-12-15 23:59 | Emergency (ER) | payer MEDICAID ==
[~2023-12-15] VITALS: Ht 170.2 cm; Wt 75.9 kg
[2023-12-16 00:03] VITALS: TEMP 98.5
[2023-12-16] MEDS ORDERED: NS 1,000 ML IV ONE (00:15)
[2023-12-16] MEDS ORDERED: fentaNYL 50 MCG/ML 2 ML VIAL IV ONE (00:15)
[2023-12-16] MEDS ORDERED: LORazepam 2 MG/ML 1 ML VIAL IV ONE (01:00)
[2023-12-16 01:30] VITALS: BP 108/67; PULSE 90
== END 2023-12-16 01:30 | disposition home or self-care (01) ==
LOC: COL.ER 23:59
DX: S93.402A Sprain of unspecified ligament of left ankle, initial encounter (principal); S76.012A Strain of muscle, fascia and tendon of left hip, initial encounter; Z91.040 Latex allergy status; V20.59XA Other motorcycle passenger injured in collision with pedestrian or animal in traffic accident, initial encounter; Y92.410 Unspecified street and highway as the place of occurrence of the external cause
CPT/HCPCS: J2060; J3010; J7030

== ENCOUNTER 2023-12-30 13:19 | Outpatient (CLI) | payer MEDICAID ==
[2023-12-30] MEDS ORDERED: Omalizumab 150 MG/1 ML SYRINGE SQ SCH (13:45)
== END 2023-12-30 15:09 ==
LOC: EUO 13:19
DX: L50.1 Idiopathic urticaria (principal)
CPT/HCPCS: J2357

== ENCOUNTER 2024-01-22 22:58 | Emergency (ER) | payer SELFPAY ==
[~2024-01-22] VITALS: Ht 154.9 cm; Wt 78.2 kg
[2024-01-22 23:02] VITALS: TEMP 98.1
[2024-01-22] MEDS ORDERED: Acetaminophen 325 MG TAB PO ONE (23:45)
[2024-01-23 00:24] VITALS: BP 125/89; PULSE 75
== END 2024-01-23 00:27 | disposition home or self-care (01) ==
LOC: COL.ER 22:58
DX: S80.02XA Contusion of left knee, initial encounter (principal); S63.91XA Sprain of unspecified part of right wrist and hand, initial encounter; F17.290 Nicotine dependence, other tobacco product, uncomplicated; Z91.040 Latex allergy status; V24.49XA Other motorcycle driver injured in collision with heavy transport vehicle or bus in traffic accident, initial encounter; Y92.410 Unspecified street and highway as the place of occurrence of the external cause

== ENCOUNTER 2024-02-07 14:56 | Outpatient (CLI) | payer MEDICAID ==
[~2024-02-07] VITALS: Ht 154.9 cm; Wt 72.8 kg
[2024-02-07 15:09] VITALS: BP 112/74; PULSE 75; TEMP 98.9
[2024-02-07] MEDS ORDERED: Omalizumab 150 MG/1 ML SYRINGE SQ SCH (15:15)
--- NOTE | 2024-02-07 15:44 | NUR ---
PT TOLERATED INJECTIONS WELL. VS REMAINED WITHIN NORMAL LIMITS. [facility]. PT REMAINED FREE FROM ACUTE CONCERNS AND COMPLAINTS.
== END 2024-02-07 15:49 | disposition home or self-care (01) ==
LOC: EUO 14:56
DX: L50.1 Idiopathic urticaria (principal)
CPT/HCPCS: J2357